=== PATIENT | male | born 1975 | race African-American/Black ===

== ENCOUNTER 2023-06-26 20:07 | Emergency (ER) | payer OTHER ==
[~2023-06-26] VITALS: Ht 180.3 cm; Wt 70.0 kg
[2023-06-26] MEDS ORDERED: BP MED PO (21:32)
[2023-06-26 22:45] LABS: BASOPHILS % (AUTO) 0.5 % (0.0-2.0); EOSINOPHILS % (AUTO) 2.6 % (1.0-6.0); HEMATOCRIT 40.7 % (41-53); HEMOGLOBIN 12.7 g/dL (13.5-17.5); LYMPHOCYTES # (AUTO) 1.6 K/uL (1.0-4.8); LYMPHOCYTES % (AUTO) 25.5 % (22.0-44.0); MEAN CORPUSCULAR HGB CONC 31.1 G/dL (31.0-37.0); MEAN CORPUSCULAR VOLUME 74 fL (80-100); MONOCYTES # (AUTO) 0.8 K/uL (0.1-1.0); MONOCYTES % (AUTO) 12.4 % (2.0-9.0); NEUTROPHILS # (AUTO) 3.8 K/uL (1.8-7.7); PLATELET COUNT (AUTO) 175 K/uL (150-450); RED BLOOD CELL COUNT(AUTO) 5.51 MIL/uL (4.50-5.90); RED CELL DISTRIBUTION WIDTH 15.3 % (11.5-14.5); WHITE BLOOD COUNT (AUTO) 6.4 K/uL (4.5-11.0)
[2023-06-26 23:02] LABS: INR 1.1 (0.9-1.1); PROTHROMBIN TIME 11.7 SEC (9.4-11.6)
[2023-06-26 23:05] LABS: B-TYPE NATRIURETIC PEPTIDE 12 pg/mL (0-100)
[2023-06-26 23:16] LABS: ANION GAP 9 mmol/L (8-16); CARBON DIOXIDE 27 mmol/L (22-29); CHLORIDE 106 mmol/L (98-107); CREATININE 1.01 mg/dL (0.60-1.30); GLOMERULAR FILTR. RATE CALC > 60 mL/min (>60); GLUCOSE,RANDOM 97 mg/dL (70-110); POTASSIUM 3.7 mmol/L (3.5-5.1); SODIUM SERUM 142 mmol/L (136-145); UREA NITROGEN, BLOOD 11 mg/dL (7-18)
[2023-06-26 23:31] LABS: ALANINE AMINOTRANSFERASE 19 U/L (12-78); ALBUMIN 3.4 g/dL (3.4-5.0); ALKALINE PHOSPHATASE 129 U/L (46-116); ASPARTATE AMINOTRANSFERASE 18 U/L (15-37); CREATINE KINASE, TOTAL ONLY 125 U/L (39-308); TROPONIN I-HIGH SENSITIVITY 11 ng/L (<76)
[2023-06-26 23:36] LABS: RBC MORPHOLOGY COMMENT ABNORMAL RBC MORPH
[2023-06-27 00:15] LABS: BILIRUBIN,TOTAL 0.1 mg/dL (0.1-1.0)
[2023-06-27 01:08] VITALS: BP 141/89; PULSE 88; RESP 20; TEMP 97.9
== END 2023-06-27 02:36 | disposition home or self-care (01) ==
LOC: EMS 20:13
DX: I10 Essential (primary) hypertension (principal); Z88.0 Allergy status to penicillin
CPT/HCPCS: 71045; 80053; 82550; 83880; 84484; 85025; 85610; 85730; 93005; 99285; 36415-L1; 36415-TC